=== PATIENT | female | born 1945 | race Caucasian/White ===

== ENCOUNTER → 2017-04-01 | Outpatient (CLI) | payer MEDICARE ==
--- NOTE | 2017-04-01 15:12 | RADIOLOGY REPORT (SQ) ---
EXAM DESCRIPTION: CAROTID DOPPLER COMPLETED DATE/TIME: 04/01/2017 1:46 pm REASON FOR STUDY: DIZZINESS R42 DIZZINESS AND GIDDINESS COMPARISON: None. TECHNIQUE: Grayscale ultrasound, Doppler velocity and spectra, and color Doppler images acquired of the extra-cranial carotid and vertebral arteries. Images stored on PACS. LIMITATIONS: None. FINDINGS: RIGHT CAROTID CCA Velocities: Within normal limits. ICA Velocities Peak systolic 0.89 m/s. End diastolic 0.21 m/s. Proximal ICA/CCA peak systolic ratio 1.4. Spectra normal. No significant plaque. LEFT CAROTID CCA Velocities: Within normal limits. ICA Velocities Peak systolic 0.68 m/s. End diastolic 0.22 m/s. Proximal ICA/CCA peak systolic ratio 1.5. Spectra normal. No significant plaque. VERTEBRAL ARTERIES: Antegrade flow. Normal waveforms. SUBCLAVIAN ARTERIES: Not evaluated OTHER: No other significant finding. IMPRESSION: NO HEMODYNAMICALLY SIGNIFICANT STENOSIS. COMMENT: Quality ID #[id number]: Velocity criteria are extrapolated from the diameter data as defined by t he Society of Radiologists in Ultrasound Consensus Conference. Radiology 2003: 229; 340-346. TECHNICAL DOCUMENTATION: JOB ID: [id number] All Rights Reserved
== END ==
LOC: EDSEX 13:00 → SP 13:06
PROVIDERS: ATTEND Nurse Practitioner
DX: R42 Dizziness and giddiness (principal)
CPT/HCPCS: 93880

== ENCOUNTER 2019-07-05 04:54 | Emergency (ER) | payer MEDICARE ==
[2019-07-05 05:02] VITALS: BP 153/89
[2019-07-05] MEDS ORDERED: HYDROCODONE/ACETAMINOPHEN 5-325 MG TABLET PO ONE (06:18)
[2019-07-05] MEDS ORDERED: ONDANSETRON 4 MG TAB.RAPDIS PO ONE (06:18)
--- NOTE | 2019-07-05 06:20 | ER Document Report ---
ED General - General Chief Complaint: Back Pain Stated Complaint: BACK PAIN Time Seen by Provider: 07/05/19 06:11 TRAVEL OUTSIDE OF THE [place] IN LAST 30 DAYS: No - HPI Notes: Patient is a 74-year-old female presents to the emergency department for evaluation of left-sided thoracic back pain. She states that she felt it "coming on" yesterday and it got worse in the middle the night. She states she has had pain exactly like this in the past. Usually it is precipitated by some sort of activity. She states once reaching across the bed started it. She denies any bowel or bladder incontinence, no saddle anesthesia, focal numbness or weakness. She denies any numbness or tingling. She states that she has had no fevers or chills. Some nausea and diminished appetite. She does note the [employer] has not worked for her in the past. - Related Data Allergies/Adverse Reactions: No Known Allergies Allergy (Unverified 07/05/19 05:01) Home Medications: Vitamins Past Medical History - General Information source: Patient - Social History Smoking Status: Never Smoker Chew tobacco use (# tins/day): No Frequency of alcohol use: None Drug Abuse: None Family History: Reviewed & Not Pertinent Patient has suicidal ideation: No Patient has homicidal ideation: No Review of Systems - Review of Systems Constitutional: No symptoms reported EENT: No symptoms reported Cardiovascular: No symptoms reported Respiratory: No symptoms reported Gastrointestinal: See HPI Genitourinary: No symptoms reported Musculoskeletal: See HPI Skin: No symptoms reported Neurological/Psychological: No symptoms reported Physical Exam - Vital signs Vitals: Temp Pulse Resp BP Pulse Ox 98 F 102 H 24 H 153/89 H 98 07/05/19 04:57 07/05/19 04:57 07/05/19 04:57 07/05/19 04:57 07/05/19 04:57 - Notes Notes: Vital signs reviewed, please refer to chart. Head is normocephalic, atraumatic. Pupils equal round, reactive to light. Neck is supple without meningismus. Heart is regular rate and rhythm. Lungs are clear to auscultation bilaterally. Abdomen is soft, nontender, normoactive bowel sounds throughout. Semination of the spine is no midline tenderness or step-off. She has paraspinal musculature tenderness noted from about T6 to the L1 region with associated spasm. Negative straight leg raise bilaterally, reflexes in the upper and lower extremities are symmetrical. Extremities without cyanosis, clubbing. Posterior calves are nontender. Peripheral pulses are equal. Skin is warm and dry. Patient is awake, alert, neurological exam is nonfocal. Course - Re-evaluation Re-evalutation: 07/05/19 06:28 Patient presents emergency department for evaluation. This seems to be mechanical back pain. It is brought about by movement. She has no other associated symptoms. She denies any urinary symptoms. She said similar pain in the past. I did go ahead and treat her here with [place]. I will send her home with prescription strength anti-inflammatory as well as Robaxin, as she has failed Flexeril in the past. We discussed moist heat to the area, following up with primary care. She should discuss the possibility of physical therapy, another modality which may improve her pain. She voiced understanding to this was discharged. - Vital Signs Vital signs: Temp Pulse Resp BP Pulse Ox 98 F 102 H 24 H 153/89 H 98 07/05/19 04:57 07/05/19 04:57 07/05/19 04:57 07/05/19 04:57 07/05/19 04:57 Discharge - Discharge Clinical Impression: Spasm of thoracic back muscle Condition: Stable Disposition: HOME, SELF-CARE Instructions: Muscle Strain ([facility]), Warm Packs ([facility]) Additional Instructions: Take medication as prescribed, with food. Watch for dizziness and drowsiness with Robaxin. Follow-up with primary care in 1 to 2 weeks. You should consider physical therapy. Return to the ED with worsening or new concerning symptoms of any sort. Prescriptions: Meloxicam [Mobic] 7.5 mg PO BID #20 tablet Methocarbamol [Robaxin-750] 750 mg PO TID PRN #21 tablet PRN Reason: Forms: Elevated Blood Pressure
== END 2019-07-05 06:35 | disposition home or self-care (01) ==
LOC: ER 04:54
DX: M62.830 Muscle spasm of back (principal); M54.6 Pain in thoracic spine; R11.0 Nausea; R63.0 Anorexia; Z79.899 Other long term (current) drug therapy
CPT/HCPCS: 99283; A9270 ×2; S0119